=== PATIENT | female | born 1955 | race Caucasian/White ===

== ENCOUNTER → 2020-02-12 11:40 | Outpatient (CLI) | payer MEDICARE, SELFPAY ==
--- NOTE | 2020-02-12 11:48 | CT_ITS ---
STUDY: CT CHEST WITH CONTRAST REASON FOR EXAM: Female, 64 years old. CHEST WALL MASS ON LEFT BELOW BREAST MARKED WITH LINE MARKER. PRIOR BREAST CANCER 2014 WITH LEFT MASTECTOMY. PLEASE DISREGARD BRA LATCH IN FRONT . HISTORY OF LIPOMAS RADIATION DOSAGE (If Supplied By Facility): CTDIvol = ( 12.80 ) mGy, DLP = ( 532.09 ) mGycm TECHNIQUE: Transaxial imaging was performed following intravenous administration of IV 100ML ISOVUE 300. Multiplanar coronal and sagittal images were reformatted. Individualized dose optimization techniques were used for this CT. COMPARISON: None. FINDINGS: The patient is status post left mastectomy with left breast prosthesis. 3.8 mm calcified granuloma in the right lower lobe. There is no demonstrated pleural abnormality. There are calcifications of the coronary arteries. Normal mediastinum. Normal hilar regions. Normal enhanced pulmonary arteries. There is atherosclerotic calcification of the aortic arch and descending thoracic aorta. There are degenerative changes of the thoracic spine. There is no demonstrated abnormality of the visualized upper abdomen. CT/Chest WITH Contrast IMPRESSION: Status post left mastectomy with the breast implant. Calcified granuloma in the right lower lobe. Electronically Signed: Wang Ponce, at 12:24 EDT , Service support ,
== END ==
PROVIDERS: PCP Family Medicine; Referring Provider Family Medicine; Visit Provider Family Medicine
DX: R22.2 Localized swelling, mass and lump, trunk (principal); Z85.3 Personal history of malignant neoplasm of breast; Z90.12 Acquired absence of left breast and nipple; Z98.82 Breast implant status
CPT/HCPCS: 71260; Q9967

== ENCOUNTER → 2021-12-23 | Outpatient (CLI) | payer MEDICARE, OTHER, SELFPAY ==
--- NOTE | 2021-12-23 17:05 | MRI_ITS ---
EXAM: MR LUMBAR SPINE WITHOUT INTRAVENOUS CONTRAST CLINICAL INDICATION: R SIDED BACK PAIN RADIATING INTO LEG TECHNIQUE: Multiplanar and multisequence MR images of the lumbar spine without intravenous contrast. Magnetic field strength 1.5 T. This report was created using [employer] report [employer] technology. COMPARISON: None. FINDINGS: VERTEBRAE: Unremarkable. Vertebral body heights are preserved. Normal vertebral bodies and posterior elements. Normal alignment. No spondylolisthesis. There is preservation of the normal lumbar lordosis. SPINAL CORD: Unremarkable. Normal position and signal intensity of the conus medullaris. SOFT TISSUES: Unremarkable. DISCS/SPINAL CANAL/NEURAL FORAMINA: L1-L2: Prominent perineural cyst that measures 1.4 x 1.4 x 0.9 cm in the left L1-L2 neural foramen. Normal spinal canal and lateral recesses. L2-L3: Unremarkable. Normal disc height and morphology. Normal spinal canal and lateral recesses. Normal neuroforamina. L3-L4: Unremarkable. Normal disc height and morphology. Normal spinal canal and lateral recesses. Normal neuroforamina. Mild bilateral facet arthropathy. L4-L5: Moderate disc space narrowing. Right paracentral disc protrusion measuring 0.7 cm AP by 0.9 cm transversely by 1.2 cm craniocaudal causing right lateral recess stenosis and impingement upon the right L5 nerve root. Moderate bilateral facet arthropathy. L5-S1: Moderate disc space narrowing. Mild central disc protrusion without spinal canal, lateral recess, or foraminal stenosis. Moderate bilateral facet arthropathy. MRI/Spine Lumbar (Routine) IMPRESSION: 1. Prominent perineural cyst that measures 1.4 x 1.4 x 0.9 cm in the left L1-L2 neural foramen. 2. L4-L5 moderate disc space narrowing and right paracentral disc protrusion measuring 0.7 cm AP by 0.9 cm transversely by 1.2 cm craniocaudal causing right lateral recess stenosis and impingement upon the right L5 nerve root. No spinal stenosis. 3. Mild to moderate bilateral facet arthropathy L3-4 through L5-S1. Electronically Signed: Austin Ly MD at 4:58 EDT ,
== END | disposition home or self-care (01) ==
LOC: MRI 17:05
PROVIDERS: PCP Family Medicine; Referring Provider Orthopaedic Surgery; Visit Provider Orthopaedic Surgery
DX: M51.26 Other intervertebral disc displacement, lumbar region (principal)
CPT/HCPCS: 72148

== ENCOUNTER 2022-01-18 07:27 | Observation (INO) | payer MEDICARE, OTHER, SELFPAY ==
[2022-01-06 12:21] LABS: Absolute Lymphocyte Count 3.19 X10^3/uL (0.83-4.51); Absolute Neutrophil Count 1.9 X10^3/uL (2.0-7.7); Basophil# 0.06 X10^3/uL; Eosinophil# 0.16 X10^3/uL; Eosinophils% 2.8 % (0-5); Hematocrit 31.5 % (37-47); Hemoglobin 10.1 g/dL (12.0-15.0); Lymphocyte # 3.19 X10^3/ul (0.83-4.51); Lymphocyte % 55.7 % (19-41); Mean Corp Hgb Conc 32.1 g/dL (32-36); Mean Corpuscular Volume 90.5 fL (81-99); Mean Platelet Vol. 11.4 fl (6.2-12.0); NRBC Flagged by Analyzer 0 % (0-5); Neutrophil # 1.91 X10^3/uL (2.7-7.7); Neutrophil % 33.3 % (47-70); Platelet Count 251 K/mm3 (150-450); RBC Distribution Width CV 15.9 % (11.6-14.6); Red Blood Count 3.48 M/mm3 (4.2-5.4); White Blood Count 5.7 K/mm3 (4.4-11.0)
[2022-01-06 12:59] LABS: Anion Gap 7 (5-15); BUN 19 mg/dL (7-18); BUN/Creat Ratio 24.5 RATIO (10-20); Calcium,Total 9.2 mg/dL (8.5-10.1); Chloride 106 mmol/L (98-107); Creatinine, Serum 0.77 mg/dL (0.55-1.02); EST Glomerular Filtration Rate 79 mL/min (>60); Est Glom Filt Rate - Afr Amer 96 mL/min (>60); Glucose 99 mg/dL (74-106); Potassium 3.8 mmol/L (3.5-5.1); Sodium Level 141 mmol/L (136-145)
[2022-01-06 13:07] LABS: Thyroid Stim Hormone (TSH) 0.87 uIU/mL (0.358-3.74)
[2022-01-06 13:22] LABS: HIV - WCH Non-Reactive (Nonreactive); Hepatitis B Surface Antibody Reactive; Hepatitis C Antibody Non-Reactive (Nonreactive)
--- NOTE | 2022-01-06 14:06 | EKG12_ITS ---
Test Reason : PREOP Blood Pressure : / mmHG Vent. Rate : 062 BPM Atrial Rate : 062 BPM P-R Int : 158 ms QRS Dur : 086 ms QT Int : 390 ms P-R-T Axes : 052 -14 006 degrees QTc Int : 395 ms Normal sinus rhythm Nonspecific ST abnormality Abnormal ECG Confirmed by FELA ESCOBAR, FARIDA ([id number]), editor farm journal CLAUDINE ANAND ([id number]) on 01/06/2022 2:07:23 PM Referred By: Mahendra Boo Confirmed By:FARIDA CHAHAL MD
[2022-01-07 15:22] LABS: Hepatitis A AB, Total Negative (Negative)
--- NOTE | 2022-01-12 15:00 | CASEMGMT ---
QUOC OLSON Assessment: TC to pt for initial transition planning/care coordination assessment. RN WESLEY introduced self and role at [facility], pt voices understanding and consents to assessment. Pt is A/O x4 and answers all questions appropriately at this time. Care providers, pharmacy, and demographics verified/updated. Admitting Dx: lumbar laminectomy discectomy L4-5 right PCP:Annette Specialists:Boo, spine OR; cardio at [facility]; Rheum at [facility]; multiple oncologists at [facility]; pulm and derm at [facility] Pharmacy: [facility] Insurance: BASIM, Meri Supp Prescription Benefit: yes LW/HPOA: Pt denies having a LW/DPOA and denies need for info regarding AD. LNOK: Rayray Oakley, Living Arrangements: Pt lives in a two story house with 1 step to enter with her . Pt reports she is I in ADL's and denies concerns at home. Pt has 17 steps to her bedroom. After surgery she plans on sleeping on the main level to avoid the steps. Transportation: Pt drives self and denies concerns with transportation. Pt will transport her as needed post surgery. DME/HHC/SNF: Pt has no AD at home, denies hx of HHC or SNF stays. Pt states no concerns with going home at time of dc. She states her will be able to assist her at home. Pt states no further concerns/needs. CM to follow. Advised pt to ask CM if any further question/concerns/needs arise once she is in the hospital, voices understanding. Pt Goal: Home Plan: Home
--- NOTE | 2022-01-17 15:55 | HP.PCM_ITS ---
History and Physical MR#: [id number] Acct: [id number] Name:ARMINDA SALDANA Rep #: [id number] : 1955 ? ? Provider: Dr. Mahendra Boo, DO Age/Sex:? 66/F ? ? Location: [facility] Status: Signed Intake Vital Signs ? 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 Required: No Accompanied by: Self Is patient in pain?: Yes Pain scale (1-10): 4 Allergies clindamycin Allergy Swellingprednisone Allergy ( Hivespromethazine HCl [From Phenergan] Adverse Reaction Other Medications aspirin 81 mg chewable tablet 81 mg PO DAILY@0800 11/03/14 [History Confirmed 12/29/21] esomeprazole magnesium 20 mg capsule,delayed release (Nexium) 20 mg PO DAILY 11/03/14 [History Confirmed 12/29/21] isosorbide mononitrate 30 mg tablet,extended release 24 hr 30 mg PO BID 11/03/14 [History Confirmed 12/29/21] losartan 100 mg-hydrochlorothiazide 25 mg tablet (Hyzaar) 1 tab PO DAILY 11/03/14 [History Confirmed 12/29/21] metoprolol tartrate 25 mg tablet 25 mg PO TID 11/03/14 [History Confirmed 12/29/21] potassium chloride 20 mEq tablet,extended release(part/cryst) (Klor-Con M) 20 meq PO DAILY 11/03/14 [History Confirmed 12/29/21] pramipexole 0.125 mg tablet (Mirapex) 0.125 mg PO DAILY 11/03/14 [History Confirmed 12/29/21] apixaban 5 mg tablet (Eliquis) 5 mg PO 12/15/21 [History Confirmed 12/29/21] colchicine 0.6 mg capsule 0.6 mg PO DAILY 12/15/21 [History Confirmed 12/29/21] escitalopram oxalate 5 mg tablet 5 mg PO 12/15/21 [History Confirmed 12/29/21] folic acid 1 mg tablet 1 mg PO DAILY 12/15/21 [History Confirmed 12/29/21] levothyroxine 88 mcg tablet (Synthroid) 88 mcg PO DAILY 12/15/21 [History Confirmed 12/29/21] montelukast 10 mg tablet (Singulair) 10 mg PO DAILY 12/15/21 [History Confirmed 12/29/21] pregabalin 100 mg capsule 100 mg PO 12/15/21 [History Confirmed 12/29/21] spironolactone 25 mg tablet 25 mg PO 12/15/21 [History Confirmed 12/29/21] PFSH Medical History? H/O malignant neoplasm of breast Heart disease Restless leg Rheumatoid arthritis Surgical History H/O mastectomy Social History? Smoking Status:? Current every day smoker HPI LUMBER SPINE Details: Parts of this documentation were recorded by a scribe, this documentation accurately reflects the service provided and the decisions made by me, Dr. Mahendra Boo, DO ARMINDA KATE is a 66 year old F here today for a follow up of her ongoing sacral pain she has been experiencing for several years without any known injury. Patient complains of pain over her right low back and her pain shoots down into her right foot, and causes numbness into her right foot. She is unable to sleep due to her pain. Patient notes that she had restless leg syndrome which is worse due to this pain. She notes that she has to sleep on memory foam to help with her pain. Patient notes that she has had injections about 2 years ago by a doctor in [place] which was helpful. Starting 4 months ago she began having pain into the buttocks on the right and down the leg and what seems to be an L5 dermatome.? On examination on she had positive tension signs on the right she forward bends and it causes straight leg raising to be positive on the right.? She otherwise has good motor strength of all the major muscle groups of both lower extremities.? She has 1+ patella and 1+ Achilles reflexes bilaterally.? She has no long tract signs.? Clonus is absent Babinski's are downgoing. After review of her MRI scan, which is almost a year old, demonstrates that she has a protrusion at 4 5 on the right.? However the MRI scan was done before the leg pain ever started.? A new MRI scan was ordered. Arminda turns for follow-up and review of the new MRI scan that we ordered of her lumbar spine.? Her can was in on the visit via speaker phone.? She has a herniated disc at L4-5 larger than the 1 that was there a year ago which is why she has such bad L5 dermatome pain.? She states that even 30 minutes in the car absolutely kills her.? She is also worried about riding her horses.? In addition she has some lung issues that she will address before any surgical intervention.? She cannot have any steroids as she has had very bad reaction to them in the past.? Basically we are left with either living the way she is or surgical intervention.? It is discussed the possibility of a simple decompression versus fusion however I feel that the simple laminectomy discectomy on the right side is all that she needs.? She is a well aware that she has a 20% chance or more that the same disc could herniate again in the future.? She understands that has nothing to do with the way the surgery is performed but that is been a known entity for the last 50 years.? In the meantime she will get the lung problem addressed with a sleep study.? We will put her on the schedule probably for early February for lumbar laminectomy discectomy L4-5 on the right side.? I will see her 1 week before surgery.? Possibly sooner depending on her sleep study. Coding Level of Care Code Off vis,est,level 2 Diagnoses Herniated nucleus pulposus, L4-5 right? M51.26
[2022-01-18] VITALS (14 sets, daily range): BP systolic 99–134; BP diastolic 57–80; PULSE 48–88; RESP 16–18; TEMP 36.1–37.1; O2SAT 97–100; BMI 31.2
[2022-01-18] MEDS: Acetaminophen 500 MG Tablet 1000 MG PO (06:48)
[2022-01-18 07:00] LABS: Bedside Glucose 135 mg/dL (74-106)
[2022-01-18] MEDS: Lactated Ringers 1,000 ML 15 ML IV ×3 (07:15→11:51)
[2022-01-18] MEDS: Cefazolin 2 GM in 0.9% Normal Saline 100 ML IV (08:00)
[2022-01-18] MEDS: THROMBIN (RECOMBINANT) 20,000 UNIT VIAL 20000 UNIT TOPICAL (08:34)
--- NOTE | 2022-01-18 08:45 | RAD_ITS ---
STUDY: X-RAY - LUMBAR SPINE REASON FOR EXAM: Female, 66 years old. LAMINECTOMY DISCECTOMY L4-5 TECHNIQUE: 1 lateral view(s) of the lumbar spine were obtained. COMPARISON: MRI of the lumbar spine dated December 23, 2021 FINDINGS: Normal lumbar lordosis. The single lateral view shows surgical instrumentation hardware over the L4-L5 interspinous space, with associated laminectomy defect. There is moderate disc space narrowing at L4-L5 and L5-S1. No visualized fractures or compression deformities. RAD/Spine 1 View Any Level IMPRESSION: Degenerative changes of the spine, as detailed above. Electronically Signed: Eduardo Pascual MD at 9:57 EDT ,
--- NOTE | 2022-01-18 10:13 | PCM.OPRPT ---
Report of Operation Description of Surgical Findings:: Preop diagnosis: Herniated disc L4-5 on the right with severe right L5 radiculopathy and intractable pain. Postoperative diagnosis: The same Procedure: Lumbar laminectomy discectomy L4-5 on the right CPT code 30099 Surgeon: Dr. Boo assistant account executive: Katalina HELLER Anesthesia: General endotracheal administered by [facility] Estimated blood loss: Less than 25 cc Drains: None Complications: None Procedure: Patient was taken to the OR where she was placed under general endotracheal anesthesia. A Franklin catheter was inserted. Neuro monitoring placed their leads on the patient. She was then placed in the prone position on the Ed frame. After proper positioning with care to protect her bony prominences her breasts her cervical spine and her facial features and protecting the ulnar nerves and the brachial plexus bilaterally the back was prepped and draped in the standard fashion. I then made a longitudinal incision centered over L4-5. Subcutaneous tissues were incised length of the skin incision. I then opened the lumbar fascia to the right of the spinous processes elevated the paravertebral muscles off the lamina of L4 and the top of the lamina of L5. An intraoperative x-ray was taken with a marker in place that confirmed that we were indeed at L4-5. This was also confirmed by the radiologist. I further elevated the paravertebral muscles at over the L4-5 facet. A Dolores retractor was then put in place. Then removed the soft tissues and areolar tissue off of the ligamentum flavum in between the 2 lamina. I then thinned the lamina out on that right side with double-action rongeurs. I then elevated the ligamentum flavum off the underside of the lamina of L4. The laminectomy was then carried out with 45 degree Kerrison rongeurs both 3 and 4 mm. He did that all the way up to the top of the insertion of the ligamentum flavum and release ligamentum flavum off the facet that is the superior facet of L5 that was grown almost to the midline. Once released I then did a medial facetectomy of the medial portion of the superior facet of L5. I was added I went ahead and in perform foraminotomies to release the nerve root even more. I then remove the ligamentum flavum in retrograde fashion with a 45 degree Kerrison rongeurs all the way out to the lateral recess. Retracted the dura and L5 nerve root medialward exposing the protruded disc I cut the disc with a 15 blade and removed the protruded portion and then more from within the disc space with pituitary rongeurs. This completely decompressed the nerve root. Bleeders were controlled with bipolar cautery and thrombin-soaked Gelfoam. Noted we thoroughly irrigated every 10 minutes or so in the course of the case to prevent infection. An amniotic membrane was then placed over the dura. Note that we had such good hemostasis but I made the decision not to put a drain in. I closed the lumbar fascia using [id number] suture with #1 Vicryl. The subcutaneous tissues were then closed in 2 layers with 2-0 Vicryl in interrupted fashion and the skin was approximated using skin clips. Sterile dressings were then applied the patient was then recovered in the OR moved to her hospital bed and taken to recovery in satisfactory condition. The end of operative summary on Arminda Oakley. This is Dr. Boo dictating.
[2022-01-18] MEDS: Colchicine 0.6 MG TABLET PO (14:42)
[2022-01-18] MEDS: Escitalopram Oxalate 10 MG Tablet 5 MG PO (14:43)
[2022-01-18] MEDS: Loratadine 10 MG Tablet PO (14:43)
[2022-01-18] MEDS: Lactated Ringers 1,000 ML 100 ML IV (14:45)
--- NOTE | 2022-01-18 14:48 | PN.HOSP_ITS ---
Documented by User: Iman Osborn AUDIO VISUAL PRODUCTION SPECIALIST-C 01/18/22 14:59 Subjective Subjective Patient seen and examined. Patient's status post lumbar laminectomy and discectomy L4-L5 on the right. Patient lying in bed no distress noted. Patient states that she is no longer having pain down her buttock and leg. Objective Data Objective Data Vital Signs: Vital Signs Temp Pulse Resp BP Pulse Ox O2 Del Method O2 Flow Rate 98.3 F 56 L 18 124/73 H 100 Nasal Cannula 4 01/18/22 12:33 01/18/22 12:33 01/18/22 12:33 01/18/22 12:33 01/18/22 12:33 01/18/22 12:33 01/18/22 12:33 Oxygen Flow Rate (L/min) 4 Oxygen Delivery Method Nasal Cannula Weight: 176 lb 5.917 oz Body Mass Index (BMI) 31.2 Intake & Output: Intake and Output for Last 24 Hours 01/16/22 01/17/22 01/18/22 23:59 23:59 23:59 Intake Total 2212 / 2212 Output Total 450 / 450 Balance 1762 / 1762 Lab / Micro Data Result Diagrams: 01/06/22 11:30 01/06/22 11:30 Labs: Laboratory Results - last 24 hr 01/18/22 06:28: POC Glucose 135 H Micro: Microbiology 01/06/22 11:30 Swab (Method) Nasal Screen MRSA/MSSA - Final Radiography Diagnostic Testing: Radiology Impression Spine X-Ray 01/18/22 08:45 IMPRESSION: Degenerative changes of the spine, as detailed above. Electronically Signed: Eduardo Pascual MD at 9:57 EDT , Physical Exam Const alert, oriented x3 and no apparent distress HEENT head/scalp atraumatic and moist oral mucous membranes Head and Scalp: normocephalic Eyes conjunctivae normal and no scleral icterus Neck no lymphadenopathy and supple Resp normal respiratory effort, normal air movement and clear to auscultation bilaterally Effort and Inspection: able to speak in complete sentences and symmetric chest movement Cardio regular rate, regular rhythm, S1 normal heart sound and S2 normal heart sound Rate: bradycardia GI normal to inspection, nondistended, normoactive bowel sounds, soft to palpation and non-tender Extremity normal to inspection and full ROM Skin Skin Narrative: Dressing to back dry and intact. Neuro oriented x3, moves all extremities, no focal motor deficits and no sensory deficits noted Sensorium / Orientation: awake and alert Psych affect normal Assessment & Plan Assessment/Plan (1) Essential hypertension: (2) Pure hypercholesterolemia: (3) Herniated nucleus pulposus, L4-5 right: PLAN: Plan 1. Hypertension -Continue home medication regimen including spironolactone, metoprolol, losartan, isosorbide. -Vital signs per protocol, currently stable -Continue potassium supplementation secondary to spironolactone use 2. Hypothyroidism -Continue levothyroxine 3. Rheumatoid arthritis -Continue Plaquenil 4. Restless leg syndrome -Continue Lyrica, Mirapex 5. Hyperlipidemia -Continue evolocumab 6. Asthma -Continue albuterol as needed, daily Zyrtec, fluticasone, mometasone, montelukast. DVT prophylaxis-SCDs This patient was seen by Iman Osborn, AUDIO VISUAL PRODUCTION SPECIALIST-C under the supervision of Dr. Akbar. 14 minutes spent in clinical coordination of patient's plan of care. Documented by User: Dr. Seferino Akbar DO 01/18/22 17:02 Objective Data Lab / Micro Data Result Diagrams: 01/06/22 11:30 01/06/22 11:30 Assessment & Plan Assessment/Plan (1) Essential hypertension: (2) Pure hypercholesterolemia: (3) Herniated nucleus pulposus, L4-5 right: Charges/Coding Addendum Addendum: Patient was seen and examined today independently of Slime Osborn, she underwent a lumbar laminectomy discectomy L4-5 on the right due to herniated disc L4-5 on right with severe right L5 radiculopathy and intractable pain. Patient has no complaints of any fevers or chills at this time, she requests that her Franklin catheter be removed if possible, I put a call into spine surgery and Dr. Boo said it was okay as long as the patient did not use a bedpan after the Franklin catheter was removed. On examination she appeared in good health and spirits, she does not appear to be in any distress. Vital signs as documented. Skin warm and dry and without overt rashes. Neck without JVD, thyroid appears normal, trachea is midline, neck is supple. Lungs clear, normal air movement was noted. Heart exam notable for regular rhythm, normal sounds and absence of murmurs, rubs or gallops. Abdomen unremarkable and without evidence of organomegaly, masses, or abdominal aortic enlargement, bowel sounds are present in all 4 quadrants, no abdominal tenderness was noted. Extremities nonedematous, no cyanosis was noted, no clubbing was noted. Neuro: Cranial nerves II through XII are grossly intact, no focal motor deficits were noted, sensation to light touch and pinprick is intact, motor exam 5/5 throughout. Psych: Patient is alert and oriented x3, she does not appear anxious or depressed, she does not appear agitated. Impression: #1 coronary artery disease-stable at this time, continue present medications #2 rheumatoid arthritis-complicates care, management, recovery, and prognosis, patient is to remain on her current medications #3 essential hypertension-patient is to remain on her current medication #4 hypothyroidism-patient is to remain on Synthroid #5 GERD-patient is on a PPI #6 herniated disc L4-5, status post lumbar laminectomy and discectomy-PT and OT will see patient I have reviewed Slime Osborn's progress note including her medical assessment and plan of care and with the above additions endorse it. Total clinical time spent by myself addressing the patient's medical issues, reviewing the data, and collaborating with patient's care team: 21 minutes Visit Charges OBSV E&M: [id number] Subsequent observation care L3
[2022-01-18] MEDS: Cefazolin 1 GM/50 ML BAG IV ×2 (16:53→23:37)
[2022-01-18] MEDS: Potassium Chloride Oral Tablet 20 MEQ PO (16:53)
[2022-01-18] MEDS: Hydroxychloroquine 200 MG Tablet PO (18:34)
[2022-01-18] MEDS: Montelukast 10 MG Tablet PO (18:35)
--- NOTE | 2022-01-18 18:43 | NURSING ---
Patient noted to have swollen lip on right side. Patient states it is sore, like it was hit. Small area noted to inside of right lip, patient states it feels rough.
[2022-01-18] MEDS: Morphine 4 MG/ML Syringe IV (20:56)
[2022-01-18] MEDS: 0.9% Saline Lock 10 ML Syringe IV (20:57)
[2022-01-18] MEDS: Pantoprazole Sodium 20 MG Tablet PO (20:57)
[2022-01-18] MEDS: Pramipexole Di-HCl 0.5 MG Tablet PO (20:57)
[2022-01-18] MEDS: Isosorbide Mononitrate 60 MG Tablet PO (20:58)
[2022-01-18] MEDS: Spironolactone 25 MG Tablet PO (20:58)
[2022-01-18] MEDS: Metoprolol Tartrate 25 MG Tablet PO (20:59)
[2022-01-18] MEDS: Losartan Potassium 100 MG Tablet PO (20:59)
[2022-01-18] MEDS: diazePAM 5 MG Tablet PO (23:37)
[2022-01-18] MEDS: Zolpidem Tartrate 5 MG Tablet PO (23:37)
[2022-01-19] MEDS: Lactated Ringers 1,000 ML 15 ML IV (00:09)
[2022-01-19 00:17] VITALS: BMI 31.2
[2022-01-19] MEDS: 0.9% Saline Lock 10 ML Syringe IV (03:20)
[2022-01-19] MEDS: Ondansetron 4 MG/2 ML Vial IV (03:20)
[2022-01-19] MEDS: Morphine 2 MG/ML Syringe IV (03:25)
[2022-01-19 04:30] VITALS: BP 127/75; PULSE 67; RESP 18; TEMP 36.7; O2SAT 95
[2022-01-19 04:33] VITALS: BMI 31.2
[2022-01-19 05:38] VITALS: BP 127/75; PULSE 67
[2022-01-19] MEDS: Levothyroxine 88 MCG Tablet PO (05:38)
[2022-01-19] MEDS: Metoprolol Tartrate 25 MG Tablet PO (05:38)
[2022-01-19] MEDS: diazePAM 5 MG Tablet PO (05:38)
[2022-01-19] MEDS: Isosorbide Mononitrate 60 MG Tablet PO (05:38)
[2022-01-19 06:57] LABS: Absolute Neutrophil Count 3.5 X10^3/uL (2.0-7.7); Basophil# 0.04 X10^3/uL; Basophil% 0.7 % (0-1); Eosinophil# 0.12 X10^3/uL; Eosinophils% 2.2 % (0-5); Hematocrit 29.6 % (37-47); Hemoglobin 9.5 g/dL (12.0-15.0); Lymphocyte % 27.2 % (19-41); Mean Corp Hgb Conc 32.1 g/dL (32-36); Mean Corpuscular Volume 90.2 fL (81-99); Mean Platelet Vol. 11.5 fl (6.2-12.0); Monocyte% 7.2 % (0-10); NRBC Flagged by Analyzer 0 % (0-5); Neutrophil # 3.45 X10^3/uL (2.7-7.7); Neutrophil % 62.5 % (47-70); Platelet Count 217 K/mm3 (150-450); RBC Distribution Width CV 15.9 % (11.6-14.6); RBC Distribution Width SD 52.6 fl (35.1-43.9); Red Blood Count 3.28 M/mm3 (4.2-5.4); White Blood Count 5.5 K/mm3 (4.4-11.0)
[2022-01-19 07:14] VITALS: O2SAT 98
[2022-01-19 07:25] LABS: ALB/GLOB Ratio 1.1 RATIO (0.9-2.4); AST(SGOT) 17 U/L (15-37); Alanine Aminotransfer ALT/SGPT 18 U/L (13-56); Albumin, Serum 3.1 g/dL (3.2-5.0); Alkaline Phosphatase 45 U/L (45-117); Anion Gap 4 (5-15); BUN 11 mg/dL (7-18); BUN/Creat Ratio 16.7 RATIO (10-20); Calcium,Total 8.8 mg/dL (8.5-10.1); Chloride 111 mmol/L (98-107); Creatinine, Serum 0.66 mg/dL (0.55-1.02); EST Glomerular Filtration Rate 95 mL/min (>60); Est Glom Filt Rate - Afr Amer 115 mL/min (>60); Globulin 2.7 g/dL (2.2-4.2); Glucose 97 mg/dL (74-106); Protein, Total 5.8 g/dL (6.4-8.2); Sodium Level 141 mmol/L (136-145)
[2022-01-19 09:43] VITALS: BP 105/57; PULSE 62; RESP 16; TEMP 37.2; O2SAT 97
[2022-01-19] MEDS: Potassium Chloride Oral Tablet 20 MEQ PO (09:46)
[2022-01-19] MEDS: Pantoprazole Sodium 20 MG Tablet PO (09:46)
[2022-01-19] MEDS: Escitalopram Oxalate 10 MG Tablet 5 MG PO (09:47)
[2022-01-19] MEDS: Spironolactone 25 MG Tablet PO (09:47)
[2022-01-19] MEDS: Colchicine 0.6 MG TABLET PO (09:47)
[2022-01-19] MEDS: Loratadine 10 MG Tablet PO (09:47)
[2022-01-19] MEDS: Montelukast 10 MG Tablet PO (09:47)
--- NOTE | 2022-01-19 09:49 | CASEMGMT ---
QUOC OLSON in to discuss FERREIRA form with patient. QUOC OLSON explained FERREIRA form, patient voiced understanding. Pt signed form and filed in chart. Pt provided with a copy of signed FERREIRA form. Patient is walking with FWW and does not have at home. Provided pt with a local in network list of DME companies, pt chose [employer]. Pt denies further homegoing needs. See previous assessment.
[2022-01-19 10:30] VITALS: O2SAT 95
--- NOTE | 2022-01-19 10:38 | NURSING ---
BLANKER PRESS OPERATOR states that he helped patient back to bed and she was c/o of pain. This RN entered room and patient was sleeping and resting quietly in bed. No s/s of distress noted. RR even and unlabored. Will continue to monitor.
--- NOTE | 2022-01-19 12:01 | NURSING ---
Patient continues to be resting quietly in bed sleeping.
--- NOTE | 2022-01-19 12:58 | DCINST_ITS ---
Discharge Instructions Follow Up Care Test Results: Test results from this visit will be discussed in further detail at your follow- up appointment, if applicable. Discharge Plan Admission Admit Date/Time: 01/18/22 07:27 Primary Reason for Your Visit: back surgery Attending Provider: Mahendra Boo Primary Care Provider: Arik Bryant Consulting Providers: Seferino Akbar Discharge Orders/Prescriptions Prescriptions: No Action spironolactone 25 mg tablet 25 mg PO BID levothyroxine [Synthroid] 88 mcg tablet 88 mcg PO DAILY colchicine 0.6 mg capsule 0.6 mg PO DAILY escitalopram oxalate [Lexapro] 5 mg tablet 5 mg PO DAILY montelukast [Singulair] 10 mg tablet 10 mg PO DAILY pregabalin 100 mg capsule 100 mg PO Q6H folic acid 1 mg tablet 2 mg PO DAILY Repatha SureClick 140 mg/mL pen injector 140 mg subcut Q2W albuterol sulfate [ProAir HFA] 90 mcg/actuation HFA aerosol inhaler 1 inh inhalation ONCE PRN (Reason: shortness of breath or wheezing) fluticasone furoate-vilanterol [Breo Ellipta] 100-25 mcg/dose blister with device 1 inh inhalation QHS nitroglycerin 0.4 mg tablet, sublingual 0.4 mg sublingual Q5-15M PRN (Reason: Chest Pain) Rx Instructions: do not exceed 3 doses per episode mometasone 50 mcg/actuation spray,non-aerosol 2 spray intranasal DAILY Rx Instructions: administer into each nostril potassium chloride 10 mEq tablet extended release 20 meq PO TID pramipexole 0.25 mg tablet 1 mg PO 1800 isosorbide mononitrate 30 MG tablet 60 mg PO TID esomeprazole magnesium [Nexium] 20 MG capsule 20 mg PO BID metoprolol tartrate 25 MG tablet 25 mg PO TID hydroxychloroquine 200 mg Tablet 200 mg PO DAILY losartan 100 mg tablet 1 tab PO QHS Label Comments: TAKE 1 TABLET BY MOUTH EVERY DAY Zyrtec 10 mg Capsule 10 mg PO DAILY aspirin 325 mg Capsule 325 mg PO DAILY cyanocobalamin (vitamin B-12) [Vitamin B-12] 5,000 mcg tablet, sublingual 2,500 mcg SUBLINGUAL DAILY multivitamin Tablet 1 tab PO DAILY pramipexole 0.5 mg Tablet 0.5 mg PO QHS cranberry 400 mg Capsule 400 mg PO DAILY Rx Instructions: administer with a meal clobetasol 0.05 % Ointment 1 applic TOPICAL BID diclofenac sodium 1 % gel 1 ea TOPICAL 4XD Referrals / Follow Up: Arik Bryant MD [Primary Care Provider] - Disposition Disposition (needs filled in before D/C Order can be placed): Home, Self Care
--- NOTE | 2022-01-19 13:00 | PCM.DC.SUM ---
Providers Date of Admission: 01/18/22 Primary Care Physician: Dr. Arik Bryant MD Attending Physician: This is discharge summary on Arminda Oakley. She was admitted yesterday and underwent lumbar laminectomy at L4-5 on the right side. She tolerated the procedure well. Today the dressing is completely dry. She is neurologically intact. She reports that her leg pain is completely resolved. I gave her directions regarding her activities and post laminectomy protocol. On Monday her dressing will be removed by her and on Monday she can start taking showers. She already has an appointment to follow-up in my office a week from next Monday. This is the end of discharge summary Josh Oakley. This is Dr. Boo dictating. Consultations 01/18/22 12:28 Consult: Hospitalist Routine Consulting Provider: Seferino Akbar Reason for Consult: Medical Management EMERGENT Consult: No MD Notified: Yes Date Notified: 01/18/22 Time Notified: 12:36 Method of Notification: Text Reason For Visit: LUMBAR LAMINECTOMY DISCECTOMY L4-5 RIGHT Diagnosis Discharge Diagnosis (1) Essential hypertension: Status: Acute Code(s): I10 - Essential (primary) hypertension (2) Pure hypercholesterolemia: Status: Acute Code(s): E78.00 - Pure hypercholesterolemia, unspecified (3) Herniated nucleus pulposus, L4-5 right: Status: Acute Code(s): M51.26 - Other intervertebral disc displacement, lumbar region Medications at Discharge Home Medications esomeprazole magnesium 20 mg capsule,delayed release (Nexium) 20 mg PO BID 11/03/14 isosorbide mononitrate 30 mg tablet,extended release 24 hr 60 mg PO TID 11/03/14 metoprolol tartrate 25 mg tablet 25 mg PO TID 11/03/14 colchicine 0.6 mg capsule 0.6 mg PO DAILY 12/15/21 escitalopram oxalate 5 mg tablet (Lexapro) 5 mg PO DAILY 12/15/21 folic acid 1 mg tablet 2 mg PO DAILY 12/15/21 levothyroxine 88 mcg tablet (Synthroid) 88 mcg PO DAILY 12/15/21 montelukast 10 mg tablet (Singulair) 10 mg PO DAILY 12/15/21 pregabalin 100 mg capsule 100 mg PO Q6H 12/15/21 spironolactone 25 mg tablet 25 mg PO BID 12/15/21 aspirin 325 mg capsule 325 mg PO DAILY 01/05/22 cetirizine 10 mg capsule (Zyrtec) 10 mg PO DAILY 01/05/22 hydroxychloroquine 200 mg tablet 200 mg PO DAILY 01/05/22 losartan 100 mg tablet 1 tab PO QHS 01/05/22 albuterol sulfate 90 mcg/actuation aerosol inhaler (ProAir HFA) 1 inh inhalation ONCE PRN shortness of breath or wheezing 01/07/22 cyanocobalamin (vitamin B-12) 5,000 mcg sublingual tablet (Vitamin B-12) 2,500 mcg sublingual DAILY 01/07/22 evolocumab 140 mg/mL subcutaneous pen injector (Repatha SureClick) 140 mg subcut Q2W 01/07/22 fluticasone furoate 100 mcg-vilanterol 25 mcg/dose inhalation powder (Breo Ellipta) 1 inh inhalation QHS 01/07/22 mometasone 50 mcg/actuation nasal spray 2 spray intranasal DAILY 01/07/22 nitroglycerin 0.4 mg sublingual tablet 0.4 mg sublingual Q5-15M PRN Chest Pain 01/07/22 potassium chloride 10 mEq tablet,extended release 20 meq PO TID 01/07/22 pramipexole 0.25 mg tablet 1 mg PO 1800 01/07/22 clobetasol 0.05 % topical ointment 1 applic topical BID 01/18/22 cranberry 400 mg capsule 400 mg PO DAILY 01/18/22 diclofenac sodium 1 % topical gel 1 ea topical 4XD 01/18/22 multivitamin 1 tab PO DAILY 01/18/22 pramipexole 0.5 mg tablet 0.5 mg PO QHS 01/18/22 Weight / BMI Weight Weight: 176 lb 5.917 oz Body Mass Index (BMI) 31.2 ABG / Lab / Microbiology Data Result Diagrams: 01/19/22 05:50 01/19/22 05:50 Laboratory: Laboratory Results - last 24 hr 01/19/22 05:50: WBC 5.5, RBC 3.28 L, Hgb 9.5 L, Hct 29.6 L, MCV 90.2, MCH 29.0, MCHC 32.1, RDW Std Deviation 52.6 H, RDW Coeff of Iman 15.9 H, Plt Count 217, MPV 11.5, Immature Gran % (Auto) 0.200, Neut % (Auto) 62.5, Lymph % (Auto) 27.2, Wetzel % (Auto) 7.2, Eos % (Auto) 2.2, Baso % (Auto) 0.7, Absolute Neuts (auto) 3.5, Absolute Lymphs (auto) 1.50, Nucleated RBC % 0 01/19/22 05:50: Sodium 141, Potassium 4.0, Chloride 111 H, Carbon Dioxide 26.0, Anion Gap 4 L, BUN 11, Creatinine 0.66, Estim Creat Clear Calc 70.30, Est GFR (MDRD) Af Amer 115, Est GFR (MDRD) Non-Af 95, BUN/Creatinine Ratio 16.7, Glucose 97, Calcium 8.8, Total Bilirubin 0.40, AST 17, ALT 18, Alkaline Phosphatase 45, Total Protein 5.8 L, Albumin 3.1 L, Globulin 2.7, Albumin/Globulin Ratio 1.1 Microbiology: Microbiology 01/06/22 11:30 Swab (Method) Nasal Screen MRSA/MSSA - Final Meaningful Use Info Meaningful Use Diagnoses (Choose all that apply): None applicable Discharge Plan Admission Admit Date/Time: 01/18/22 07:27 Primary Reason for Your Visit: back surgery Attending Provider: Mahendra Boo Primary Care Provider: Arik Bryant Consulting Providers: Seferino Akbar Discharge Orders/Prescriptions Prescriptions: No Action spironolactone 25 mg tablet 25 mg PO BID levothyroxine [Synthroid] 88 mcg tablet 88 mcg PO DAILY colchicine 0.6 mg capsule 0.6 mg PO DAILY escitalopram oxalate [Lexapro] 5 mg tablet 5 mg PO DAILY montelukast [Singulair] 10 mg tablet 10 mg PO DAILY pregabalin 100 mg capsule 100 mg PO Q6H folic acid 1 mg tablet 2 mg PO DAILY Repatha SureClick 140 mg/mL pen injector 140 mg subcut Q2W albuterol sulfate [ProAir HFA] 90 mcg/actuation HFA aerosol inhaler 1 inh inhalation ONCE PRN (Reason: shortness of breath or wheezing) fluticasone furoate-vilanterol [Breo Ellipta] 100-25 mcg/dose blister with device 1 inh inhalation QHS nitroglycerin 0.4 mg tablet, sublingual 0.4 mg sublingual Q5-15M PRN (Reason: Chest Pain) Rx Instructions: do not exceed 3 doses per episode mometasone 50 mcg/actuation spray,non-aerosol 2 spray intranasal DAILY Rx Instructions: administer into each nostril potassium chloride 10 mEq tablet extended release 20 meq PO TID pramipexole 0.25 mg tablet 1 mg PO 1800 isosorbide mononitrate 30 MG tablet 60 mg PO TID esomeprazole magnesium [Nexium] 20 MG capsule 20 mg PO BID metoprolol tartrate 25 MG tablet 25 mg PO TID hydroxychloroquine 200 mg Tablet 200 mg PO DAILY losartan 100 mg tablet 1 tab PO QHS Label Comments: TAKE 1 TABLET BY MOUTH EVERY DAY Zyrtec 10 mg Capsule 10 mg PO DAILY aspirin 325 mg Capsule 325 mg PO DAILY cyanocobalamin (vitamin B-12) [Vitamin B-12] 5,000 mcg tablet, sublingual 2,500 mcg SUBLINGUAL DAILY multivitamin Tablet 1 tab PO DAILY pramipexole 0.5 mg Tablet 0.5 mg PO QHS cranberry 400 mg Capsule 400 mg PO DAILY Rx Instructions: administer with a meal clobetasol 0.05 % Ointment 1 applic TOPICAL BID diclofenac sodium 1 % gel 1 ea TOPICAL 4XD Referrals / Follow Up: Arik Bryant MD [Primary Care Provider] - Disposition Disposition (needs filled in before D/C Order can be placed): Home, Self Care
--- NOTE | 2022-01-19 13:03 | CASEMGMT ---
[facility] NOTE: Pt being discharged home today, per Dr Boo. [facility] CM to room. Pt states she would like a walker. Pt provided w/list of local DME companies. Pt states [employer]. Script for walker obtained from Dr Boo and faxed to [employer]. E-mail sent to Jermaine @ [employer] to notify him of need of walker. Xiomara ANDREWS RN CM
[2022-01-19] MEDS: oxyCODONE 5 MG Tablet PO (13:38)
[2022-01-19 13:42] VITALS: BP 108/68; PULSE 71; RESP 16; TEMP 36.9; O2SAT 96
[2022-01-19 14:23] VITALS: BMI 31.2
== END 2022-01-19 15:00 | disposition home or self-care (01) ==
LOC: SDC 11:02 → MS3 11:02
PROVIDERS: Anesthesiology; Nurse Practitioner Family; Admitting Provider Orthopaedic Surgery; PCP Family Medicine; Referring Provider Orthopaedic Surgery; Visit Provider Orthopaedic Surgery
PROC: (CPT 63030; principal; 2022-01-18 07:00)
DX: M51.16 Intervertebral disc disorders with radiculopathy, lumbar region (principal); M06.9 Rheumatoid arthritis, unspecified; I10 Essential (primary) hypertension; F17.200 Nicotine dependence, unspecified, uncomplicated; I25.10 Atherosclerotic heart disease of native coronary artery without angina pectoris; E78.00 Pure hypercholesterolemia, unspecified; Z79.899 Other long term (current) drug therapy; Z79.82 Long term (current) use of aspirin; Z79.01 Long term (current) use of anticoagulants; K21.9 Gastro-esophageal reflux disease without esophagitis; Z86.711 Personal history of pulmonary embolism; G25.81 Restless legs syndrome; J45.909 Unspecified asthma, uncomplicated; M51.26 Other intervertebral disc displacement, lumbar region
CPT/HCPCS: 63030; 00670; 36415; 72020; 80048; 80053; 82962; 83735; 84443; 85025; 86703; 86706; 86708; 86803; 87081; 93005; 96361; 96365; 96366; 96375; 96376; 97116; 97162; 97530; 99218; 99251; 99252; J7120; A4216; G0378; G0463; J2405; J3475

== ENCOUNTER → 2022-11-23 | Outpatient (CLI) | payer MEDICARE, OTHER, SELFPAY ==
--- NOTE | 2022-11-23 06:39 | MRI_ITS ---
INDICATION: pain INTO LEGS BILATERALLY, H/O DDD EXAMINATION: MRI - MR Spine Lumbar WO/W Contrast TECHNIQUE: Multiplanar and multisequence MR images of the lumbar spine. IV Contrast Dosage and Agent: IV 15cc clariscan COMPARISON: MR Lumbar Spine, Dec 23, 2021 FINDINGS: VERTEBRAE: Unremarkable. Vertebral body heights are preserved. Normal vertebral bodies and posterior elements. Normal alignment. No spondylolisthesis. There is preservation of the normal lumbar lordosis. SPINAL CORD: Unremarkable. Normal position and signal intensity of the conus medullaris. SOFT TISSUES: There is a stable left renal cyst measures 1.2 cm. DISCS/SPINAL CANAL/NEURAL FORAMINA: L1-L2: Prominent perineural cyst that measures 1.4 x 1.4 x 0.9 cm in the left L1-L2 neural foramen. Normal spinal canal and lateral recesses. L2-L3: Unremarkable. Normal disc height and morphology. Normal spinal canal and lateral recesses. Normal neuroforamina. L3-L4: Unremarkable. Normal disc height and morphology. Normal spinal canal and lateral recesses. Normal neuroforamina. Mild bilateral facet arthropathy. L4-L5: Post surgical changes from right laminectomy. There is epidural scaring anteriorly and on the right without evidence of recurrent disc herniation. Moderate bilateral facet arthropathy. L5-S1: Decreased disc height and small circumferential disc bulge. Degenerative changes of the bilateral facet joints. Mild narrowing of the central canal and bilateral intervertebral neural foramina. MRI/Spine Lumbar W/WO Contrast IMPRESSION: 1. Stable perineural cyst that measures 1.4 x 1.4 x 0.9 cm in the left L1-L2 neural foramen. 2. Post surgical changes L4-L5 from right laminectomy. There is epidural scaring anteriorly and on the right without evidence of recurrent disc herniation. Electronically Signed: Marek Clancy MD at 6:19 EDT ,
[2022-11-23 07:10] LABS: CREATININE FINGERSTICK 1.1 mg/dL (0.55-1.02)
== END | disposition home or self-care (01) ==
LOC: MRI 06:27
PROVIDERS: PCP Family Medicine; Referring Provider Orthopaedic Surgery; Visit Provider Orthopaedic Surgery
DX: M51.26 Other intervertebral disc displacement, lumbar region (principal)
CPT/HCPCS: 72158; A9575